=== PATIENT | male | born 1940 | race Caucasian/White ===

== ENCOUNTER 2017-09-18 14:30 | Emergency (ER) | payer MEDICARE, BC ==
[2017-09-18] MEDS ORDERED: Albuterol/Ipratropium 3.0-0.5 MG/3 ML Neb Soln NEB ONE (14:36)
[2017-09-18] MEDS ORDERED: Sodium Chloride 0.9% 10 ML Syringe FLUSH PRN (14:37)
[2017-09-18 15:30] VITALS: BP 152/98
--- NOTE | 2017-09-18 16:15 | EDM.PDOC ---
ED HPI GENERAL MEDICAL PROBLEM - General Chief Complaint: Respiratory Problem Stated Complaint: Shortness of Breath, Cough Time Seen by Provider: 09/18/17 14:40 Source of Information: Reports: Patient History Limitations: Reports: No Limitations - History of Present Illness INITIAL COMMENTS - FREE TEXT/NARRATIVE: Patient seen with 5 day history of shortness of breath coughing not feeling well came in for evaluation Onset: Gradual Duration: Day(s): Location: Reports: Chest Quality: Reports: Ache Severity: Moderate Improves with: Reports: Other (Respiratory treatment) Worsens with: Reports: Breathing Context: Reports: Other Associated Symptoms: Reports: Cough, Other (Shortness of breath) Headache Pain Score (Numeric/FACES): 2 - Related Data Allergies Allergy/AdvReac Type Severity Reaction Status Date / Time No Known Allergies Allergy Verified 09/18/17 14:34 Home Meds: Home Meds Albuterol Sulfate [Proair Hfa] 1 puff INH ASDIRECTED PRN 09/12/15 [History] Albuterol/Ipratropium [DuoNeb 3.0-0.5 MG/3 ML] 1 vial INH Q8HR PRN 09/12/15 [ History] Budesonide/Formoterol [Symbicort 160-4.5 MCG] 2 puff INH BID 09/12/15 [History] Lisinopril 5 mg PO DAILY 09/12/15 [History] Tamsulosin [Flomax] 1 cap PO DAILY 09/12/15 [History] Tiotropium [Spiriva HandiHaler] 18 mcg INH DAILY 09/12/15 [History] amLODIPine [Norvasc] 10 mg PO DAILY 09/12/15 [History] Aspirin 81 mg PO DAILY tab.chew 09/13/15 [Rx] Metoprolol Tartrate [Lopressor] 25 mg PO BID #60 tablet 09/13/15 [Rx] Nicotine [Habitrol] 21 mg TRDERM DAILY #60 patch 09/13/15 [Rx] Nitroglycerin [Nitrostat] 0.4 mg SL Q5M PRN #1 bottle 09/13/15 [Rx] Past Medical History Other HEENT History: Plate holds C5,6,7 fused neck, hx head trauma Cardiovascular History: Reports: High Cholesterol, Hypertension Respiratory History: Reports: COPD, Pneumothorax Other Respiratory History: Hx bilateral pneumothorax, hx upper left lobe fungus , removed surgically Genitourinary History: Reports: BPH Other Musculoskeletal History: Hx 8 broken ribs, shattered right femur, 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 Neurological History: Reports: Brain Injury, Head Trauma - Past Surgical History Respiratory Surgical History: Reports: Lung Biopsies Social & Family History - Tobacco Use Smoking Status *Q: Former Smoker Years of Tobacco use: 50 Packs/Tins Daily: 1 Used Tobacco, but Quit: Yes Month/Year Tobacco Last Used: 0 Second Hand Smoke Exposure: Yes - Recreational Drug Use Recreational Drug Use: No ED ROS GENERAL - Review of Systems Review Of Systems: See Below Constitutional: Reports: No Symptoms HEENT: Reports: No Symptoms, Sinus Problem Respiratory: Reports: Shortness of Breath, Wheezing Cardiovascular: Reports: No Symptoms Endocrine: Reports: No Symptoms GI/Abdominal: Reports: No Symptoms : Reports: No Symptoms Musculoskeletal: Reports: No Symptoms Skin: Reports: No Symptoms Neurological: Reports: No Symptoms Psychiatric: Reports: No Symptoms Hematologic/Lymphatic: Reports: No Symptoms Immunologic: Reports: No Symptoms ED EXAM, GENERAL - Physical Exam Exam: See Below Exam Limited By: No Limitations General Appearance: Alert, WD/WN, No Apparent Distress Eye Exam: Bilateral Eye: EOMI, PERRL Ears: Normal External Exam, Normal Canal, Hearing Grossly Normal, Normal TMs Nose: Normal Inspection Throat/Mouth: Normal Inspection, Normal Lips, Normal Teeth, Normal Gums, Normal Oropharynx, Normal Voice, No Airway Compromise Head: Atraumatic, Normocephalic Neck: Normal Inspection, Supple, Non-Tender, Full Range of Motion Respiratory/Chest: Respiratory Distress, Decreased Breath Sounds, Rales, Wheezing, Other (Bilateral lower bases) Cardiovascular: Normal Peripheral Pulses, Regular Rate, Rhythm, No Edema, No Gallop, No JVD, No Murmur, No Rub GI/Abdominal: Normal Bowel Sounds, Soft, Non-Tender, No Organomegaly, No Distention, No Abnormal Bruit, No Mass (Male) Exam: Deferred Rectal (Males) Exam: Deferred Back Exam: Normal Inspection, Full Range of Motion, NT Extremities: Normal Inspection, Normal Range of Motion, Non-Tender, Normal Capillary Refill, No Pedal Edema Neurological: Alert, Oriented, CN II-XII Intact, Normal Cognition, Normal Gait, Normal Reflexes, No Motor/Sensory Deficits Psychiatric: Normal Affect, Normal Mood Skin Exam: Warm Lymphatic: No Adenopathy Course - Vital Signs Last Recorded V/S: Last Vital Signs Temp 98.4 F 09/18/17 14:30 Pulse 68 09/18/17 14:30 Resp 20 09/18/17 14:30 BP 152/98 H 09/18/17 14:30 Pulse Ox 86 L 09/18/17 14:30 - Orders/Labs/Meds Labs: Laboratory Tests 09/18/17 09/18/17 Range/Units 14:46 14:46 WBC 13.8 H (4.0-10.2) K/uL RBC 4.82 (4.33-5.41) M/uL Hgb 15.4 (13.1-16.8) g/dL Hct 45.2 (39.0-49.0) % MCV 93.8 (84.0-98.0) fL MCH 32.0 (28.2-33.3) pg MCHC 34.1 (31.7-36.0) g/dL RDW 15.5 H (11.2-14.1) % Plt Count 184 (150-350) K/uL MPV 9.30 (7.00-11.50) fL Sodium 140 (136-145) mmol/L Potassium 4.6 (3.5-5.1) mmol/L Chloride 104 (98-107) mmol/L Carbon Dioxide 29.8 (21.0-32.0) mmol/L BUN 28 H (7-18) mg/dL Creatinine 1.27 H (0.51-1.17) mg/dL Est Cr Clr Drug Dosing 51.89 mL/min Estimated GFR (MDRD) 55 mL/min Glucose 119 H (74-106) mg/dL Calcium 8.4 L (8.5-10.1) mg/dL Meds: Medications Discontinued Medications Generic Name Dose Route Start Last Admin Trade Name Freq PRN Reason Stop Dose Admin Albuterol/Ipratropium 3 ml 09/18/17 14:36 09/18/17 14:40 Duoneb 3.0-0.5 Mg/3 Ml NEB 09/18/17 14:37 3 ml ONETIME ONE Administration Levofloxacin/Dextrose 500 mg/ 100 mls @ 100 mls/hr 09/18/17 16:18 09/18/17 16 :31 Premix IV 09/18/17 17:17 100 mls/hr ONETIME ONE Administration Sodium Chloride 10 ml 09/18/17 14:37 Saline Flush FLUSH ASDIRECTED PRN Keep Vein Open Departure - Departure Time of Disposition: 17:25 Disposition: Against Medical Advice 07 Condition: Poor Clinical Impression: COPD with exacerbation Pneumonia Qualifiers: Pneumonia type: due to unspecified organism Laterality: unspecified laterality Lung location: unspecified part of lung Qualified Code(s): J18.9 - Pneumonia, unspecified organism - Discharge Information Instructions: Community-Acquired Pneumonia, Adult Referrals: PCP,Unobtain [Primary Care Provider] - Forms: ED Department Discharge Care Plan Goals: At this time patient was hypoxic with oxygenation going down to 87%. Patient refused admission will give 1 dose of IV antibiotics here and send him home on antibiotics oral .
[2017-09-18] MEDS ORDERED: Levofloxacin/Dextrose 5%-Water 500 MG in Premix Bag 1 BAG IV ONE (16:18)
== END 2017-09-18 17:25 | disposition left against medical advice (07) ==
LOC: LL.ED 14:30
DX: J44.1 Chronic obstructive pulmonary disease with (acute) exacerbation (principal); J18.9 Pneumonia, unspecified organism; E78.00 Pure hypercholesterolemia, unspecified; I10 Essential (primary) hypertension; Z79.899 Other long term (current) drug therapy; Z79.82 Long term (current) use of aspirin; Z87.891 Personal history of nicotine dependence
CPT/HCPCS: 36415; 71046; 80048; 85027; 96365; 99285; J1956

== ENCOUNTER 2018-06-14 09:14 | Emergency (ER) | payer BC, MEDICARE ==
--- NOTE | 2018-06-14 09:46 | EDM.PDOC ---
ED HPI GENERAL MEDICAL PROBLEM - General Chief Complaint: Cardiovascular Problem Stated Complaint: shortness of breath Time Seen by Provider: 06/14/18 09:20 - History of Present Illness INITIAL COMMENTS - FREE TEXT/NARRATIVE: Patient is a 77-year-old who was brought in by paramedics with progressive deterioration of shortness of breath patient states that for about a week he has been short of breath but today got to the point where he cannot tolerated so he told his daughter to call 911 patient was brought in for evaluation past medical history of severe COPD. Duration: Day(s):, Getting Worse Location: Reports: Chest Severity: Severe Improves with: Reports: Medication Worsens with: Reports: Movement Associated Symptoms: Reports: Shortness of Breath Treatments [employer]: Reports: Oxygen - Related Data Allergies Allergy/AdvReac Type Severity Reaction Status Date / Time No Known Allergies Allergy Verified 06/14/18 10:33 Home Meds: Home Meds Albuterol Sulfate [Proair Hfa] 2 puff INH ASDIRECTED PRN 09/12/15 [History] Albuterol/Ipratropium [DuoNeb 3.0-0.5 MG/3 ML] 1 vial INH QID PRN 09/12/15 [ History] Budesonide/Formoterol [Symbicort 160-4.5 MCG] 2 puff INH BID 09/12/15 [History] Lisinopril 5 mg PO DAILY 09/12/15 [History] Tamsulosin [Flomax] 2 cap PO DAILY 09/12/15 [History] Tiotropium [Spiriva HandiHaler] 18 mcg INH DAILY 09/12/15 [History] amLODIPine [Norvasc] 10 mg PO DAILY 09/12/15 [History] Aspirin 81 mg PO DAILY tab.chew 09/13/15 [Rx] Nitroglycerin [Nitrostat] 0.4 mg SL Q5M PRN #1 bottle 09/13/15 [Rx] Albuterol [Ventolin HFA] 2 inh IH Q6HR PRN 06/14/18 [History] Levothyroxine [Synthroid] 50 mcg PO ACBREAKFAST 06/14/18 [History] Metoprolol Tartrate 50 mg PO BID 06/14/18 [History] Past Medical History Other HEENT History: Plate holds C5,6,7 fused neck, hx head trauma Cardiovascular History: Reports: High Cholesterol, Hypertension Respiratory History: Reports: COPD, Pneumothorax Other Respiratory History: Hx bilateral pneumothorax, hx upper left lobe fungus , removed surgically Genitourinary History: Reports: BPH Other Musculoskeletal History: Hx 8 broken ribs, shattered right femur, 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 Neurological History: Reports: Brain Injury, Head Trauma - Past Surgical History Respiratory Surgical History: Reports: Lung Biopsies ED ROS GENERAL - Review of Systems Review Of Systems: See Below Constitutional: Reports: Fever, Weakness HEENT: Reports: No Symptoms Respiratory: Reports: Shortness of Breath, Wheezing Cardiovascular: Reports: Blood Pressure Problem, Dyspnea on Exertion, Edema GI/Abdominal: Reports: No Symptoms : Reports: No Symptoms, Other (History of BPH on Flomax doing well) Musculoskeletal: Reports: Shoulder Pain (Right shoulder arthritis), Hand Pain ( Left hand arthritis and) Skin: Reports: Change in Color, Other (Patient was on a rebreathing mask at 12 L ) Neurological: Reports: No Symptoms Psychiatric: Reports: No Symptoms Hematologic/Lymphatic: Reports: No Symptoms Immunologic: Reports: No Symptoms ED EXAM, GENERAL - Physical Exam Exam: See Below Exam Limited By: No Limitations General Appearance: Alert, Severe Distress (Respiratory distress), Thin, Cachetic, Other (Disheveled) Ears: Normal External Exam, Normal Canal, Hearing Grossly Normal, Normal TMs Nose: Normal Inspection, Normal Mucosa, No Blood Throat/Mouth: Normal Inspection, Normal Oropharynx, Normal Voice, No Airway Compromise Head: Atraumatic, Normocephalic Neck: Normal Inspection, Supple, Non-Tender, Full Range of Motion Respiratory/Chest: Respiratory Distress, Decreased Breath Sounds, Wheezing, Stridor, Accessory Muscle Use, Prolonged Expiration Cardiovascular: Regular Rate, Rhythm, Tachycardia GI/Abdominal: Normal Bowel Sounds, Soft, Non-Tender, No Organomegaly, No Distention, No Abnormal Bruit, No Mass (Male) Exam: Deferred Rectal (Males) Exam: Deferred Neurological: Alert, Oriented, CN II-XII Intact, Normal Cognition, Normal Gait, Normal Reflexes, No Motor/Sensory Deficits Psychiatric: Normal Affect Skin Exam: Warm, Dry, Intact, No Rash Lymphatic: No Adenopathy Course - Vital Signs Last Recorded V/S: Last Vital Signs Temp 99.5 F 06/14/18 09:16 Pulse 89 06/14/18 11:30 Resp 24 H 06/14/18 11:30 BP 160/95 H 06/14/18 11:30 Pulse Ox 99 06/14/18 11:30 - Orders/Labs/Meds Orders: Active Orders 24 hr Category Date Time Status EKG Documentation Completion [RC] ASDIRECTED Care 06/14/18 09:39 Active RT Aerosol Therapy [RC] ASDIRECTED Care 06/14/18 09:54 Active Telemetry Monitoring [Cardiac Monitoring] [RC] . Care 06/14/18 09:59 Active DIRECTED Abdomen Comp [US] Stat Exams 06/14/18 10:33 Ordered Chest 1V Frontal [CR] Stat Exams 06/14/18 09:39 Taken Piperacillin/Tazobactam [Zosyn] 3.375 gm Med 06/14/18 10:15 Active Sodium Chloride 0.9% [Normal Saline] 100 ml IV Q6H Medication Orders Piperacillin Sod/Tazobactam (Sod 3.375 gm/ Sodium Chloride) 100 mls @ 200 mls/ hr IV Q6H CORRINA Last Admin: 06/14/18 10:48 Dose: 200 mls/hr Labs: Laboratory Tests 06/14/18 06/14/18 06/14/18 Range/Units 09:45 09:45 09:45 WBC 11.8 H (4.0-10.2) K/uL RBC 5.50 H (4.33-5.41) M/uL Hgb 17.4 H D (13.1-16.8) g/dL Hct 53.9 H (39.0-49.0) % MCV 98.0 D (84.0-98.0) fL MCH 31.6 (28.2-33.3) pg MCHC 32.3 (31.7-36.0) g/dL RDW 15.9 H (11.2-14.1) % Plt Count 146 L (150-350) K/uL Neut % (Auto) 81.6 H (45.0-80.0) % Lymph % (Auto) 9.7 L (10.0-50.0) % Johnston % (Auto) 6.5 (2.0-14.0) % Eos % (Auto) 1.9 (0.0-5.0) % Baso % (Auto) 0.3 (0.0-2.0) % Neut # (Auto) 9.64 H (1.40-7.00) K/uL Lymph # (Auto) 1.14 (0.50-3.50) K/uL Johnston # (Auto) 0.77 (0.00-1.00) K/uL Eos # (Auto) 0.22 (0.00-0.50) K/uL Baso # (Auto) 0.04 (0.00-0.20) K/uL Sodium 143 (136-145) mmol/L Potassium 4.9 (3.5-5.1) mmol/L Chloride 102 (98-107) mmol/L Carbon Dioxide 34.5 H (21.0-32.0) mmol/L BUN 32 H (7-18) mg/dL Creatinine 1.24 H (0.51-1.17) mg/dL Est Cr Clr Drug Dosing TNP Estimated GFR (MDRD) 57 mL/min Glucose 160 H (74-106) mg/dL Lactic Acid 1.3 (0.4-2.0) mmol/L Calcium 8.5 (8.5-10.1) mg/dL Total Bilirubin 0.6 (0.2-1.0) mg/dL AST 23 (15-37) U/L ALT 32 (12-78) U/L Alkaline Phosphatase 80 (46-116) IU/L Troponin I 0.033 (0.000-0.056) ng/mL NT-Pro-B Natriuret Pep 30739 H (0-125) pg/mL Total Protein 7.1 (6.4-8.2) g/dL Albumin 3.4 (3.4-5.0) g/dL Meds: Medications Generic Name Dose Route Start Last Admin Trade Name Freq PRN Reason Stop Dose Admin Piperacillin Sod/Tazobactam 100 mls @ 200 mls/hr 06/14/18 10:15 06/14/18 10: 48 Sod 3.375 gm/ Sodium Chloride IV 200 mls/hr Q6H CORRINA Administration Discontinued Medications Generic Name Dose Route Start Last Admin Trade Name Freq PRN Reason Stop Dose Admin Albuterol/Ipratropium 3 ml 06/14/18 09:53 06/14/18 10:04 Duoneb 3.0-0.5 Mg/3 Ml NEB 06/14/18 09:54 3 ml ONETIME ONE Administration Furosemide 40 mg 06/14/18 09:57 06/14/18 10:01 Lasix IVPUSH 06/14/18 09:58 40 mg NOW STA Administration Labetalol HCl 10 mg 06/14/18 09:48 06/14/18 09:53 Normodyne IVPUSH 06/14/18 09:49 10 mg ONETIME ONE Administration Protocol Labetalol HCl 10 mg 06/14/18 10:32 06/14/18 10:36 Normodyne IVPUSH 06/14/18 10:33 10 mg ONETIME ONE Administration Protocol Labetalol HCl 10 mg 06/14/18 11:47 Normodyne IVPUSH 06/14/18 11:48 ONETIME ONE Protocol Lisinopril 5 mg 06/14/18 11:48 Prinivil PO 06/14/18 11:49 ONETIME ONE Methylprednisolone Sodium Succinate 125 mg 06/14/18 09:54 06/14/18 10:01 Solu-Medrol IVPUSH 06/14/18 09:55 125 mg ONETIME STA Administration Departure - Departure Time of Disposition: 12:35 Disposition: DC/Tfer to [facility] Clinical Impression: Aortic aneurysm Qualifiers: Aortic location: abdominal aorta Presence of rupture: without rupture Qualified Code(s): I71.4 - Abdominal aortic aneurysm, without rupture ED Communication - Conversation Summary Summary Comment: Ultrasound ordered. Revealed aneurysm of the aorta. 5x6 cm in size. [facility] call called for transfer. - Problem List & Annotations (1) COPD with exacerbation SNOMED Code(s): 701600958, 650357714 Code(s): J44.1 - CHRONIC OBSTRUCTIVE PULMONARY DISEASE W (ACUTE) EXACERBATION Status: Acute Current Visit: No Annotation/Comment:: Patient seen in the ER with acute exacerbation of COPD increased difficulty breathing was treated will be transferred to [facility] (2) Hypertension SNOMED Code(s): 54071199 Code(s): I10 - ESSENTIAL (PRIMARY) HYPERTENSION Status: Acute Current Visit: No Annotation/Comment:: Patient aggressively treated for hypertension in the ER Qualifiers: Hypertension type: unspecified secondary hypertension Qualified Code(s): I15.9 - Secondary hypertension, unspecified (3) Pneumonia SNOMED Code(s): 766647348 Code(s): J18.9 - PNEUMONIA, UNSPECIFIED ORGANISM Status: Acute Current Visit: No Annotation/Comment:: Patient started on antibiotic secondary to elevated white count and COPD Qualifiers: Pneumonia type: due to unspecified organism Laterality: unspecified laterality Lung location: unspecified part of lung Qualified Code(s): J18.9 - Pneumonia, unspecified organism (4) Aortic aneurysm SNOMED Code(s): 45963112 Code(s): I71.9 - AORTIC ANEURYSM OF UNSPECIFIED SITE, WITHOUT RUPTURE Status: Acute Current Visit: Yes Qualifiers: Aortic location: abdominal aorta Presence of rupture: without rupture Qualified Code(s): I71.4 - Abdominal aortic aneurysm, without rupture - My Orders Last 24 Hours: My Active Orders 06/14/18 09:39 EKG Documentation Completion [RC] ASDIRECTED Chest 1V Frontal [CR] Stat 06/14/18 09:54 RT Aerosol Therapy [RC] ASDIRECTED 06/14/18 09:59 Telemetry Monitoring [Cardiac Monitoring] [RC] . DIRECTED 06/14/18 10:15 Piperacillin/Tazobactam [Zosyn] 3.375 gm Sodium Chloride 0.9% [Normal Saline] 100 ml IV Q6H 06/14/18 10:33 Abdomen Comp [US] Stat - Assessment/Plan Last 24 Hours: My Active Orders 06/14/18 09:39 EKG Documentation Completion [RC] ASDIRECTED Chest 1V Frontal [CR] Stat 06/14/18 09:54 RT Aerosol Therapy [RC] ASDIRECTED 06/14/18 09:59 Telemetry Monitoring [Cardiac Monitoring] [RC] . DIRECTED 06/14/18 10:15 Piperacillin/Tazobactam [Zosyn] 3.375 gm Sodium Chloride 0.9% [Normal Saline] 100 ml IV Q6H 06/14/18 10:33 Abdomen Comp [US] Stat Plan: Ultrasound ordered. Revealed aneurysm of the aorta. 5x6 cm in size. [facility] call called for transfer. [facility] accepted transfer.
[2018-06-14] MEDS ORDERED: Labetalol 20 MG/4 ML Syringe IVPUSH ONE ×4 (09:48→12:38)
[2018-06-14] MEDS ORDERED: Albuterol/Ipratropium 3.0-0.5 MG/3 ML Neb Soln NEB ONE ×2 (09:53→12:25)
[2018-06-14] MEDS ORDERED: methylPREDNISolone Sodium Succinate 125 MG/2 ML SDV IVPUSH STA (09:54)
[2018-06-14] MEDS ORDERED: Furosemide 40 MG/4 ML VIAL IVPUSH STA (09:57)
[2018-06-14] MEDS: Sodium Chloride 0.9% 10 ML Syringe FLUSH PRN ×4 (10:02→12:47)
[2018-06-14 10:09] LABS: CHLORIDE,CL 102 mmol/L (98-107); SODIUM,NA 143 mmol/L (136-145)
[2018-06-14] MEDS ORDERED: Piperacillin/Tazobactam 3.375 GM in Sodium Chloride 0.9% 100 ML IV SCH (10:15)
[2018-06-14] MEDS ORDERED: Lisinopril 5 MG Tab PO ONE (11:48)
[2018-06-14 13:13] VITALS: BP 137/83
== END 2018-06-14 13:20 ==
LOC: LL.ED 09:14 → UNDOADMIN 10:51 → LL.MS 10:51 → LL.ED 13:20
DX: J44.1 Chronic obstructive pulmonary disease with (acute) exacerbation (principal); I71.4 Abdominal aortic aneurysm, without rupture; I10 Essential (primary) hypertension; J18.9 Pneumonia, unspecified organism; M19.011 Primary osteoarthritis, right shoulder; M19.042 Primary osteoarthritis, left hand; E78.00 Pure hypercholesterolemia, unspecified; F17.210 Nicotine dependence, cigarettes, uncomplicated; N40.0 Benign prostatic hyperplasia without lower urinary tract symptoms; Z79.899 Other long term (current) drug therapy; Z79.82 Long term (current) use of aspirin
CPT/HCPCS: 36415; 71045; 76700; 80053; 83605; 83880; 84484; 85025; 93005; 94640; 96365; 96375; 96376; 99285; A9270-GY; J1940; J2543; J2930; J3490; J7050; J7620-GY